=== PATIENT | female | born 1960 | race Caucasian/White ===

== ENCOUNTER 2022-09-01 10:10 | Outpatient (CLI) | payer OTHER, SELFPAY | END 2022-09-01 10:11 | disposition home or self-care (01) | LOC: ANHBWCAUD 10:12 | PROVIDERS: PCP Nurse Practitioner Family; Visit Provider Nurse Practitioner Family | DX: H61.23 Impacted cerumen, bilateral (principal) | CPT/HCPCS: 99199 ==